=== PATIENT | female | born 1945 | race Caucasian/White ===

== ENCOUNTER 2017-04-13 08:36 | Inpatient (IN) | payer OTHER, MEDICARE ==
[~2017-04-13] VITALS: Ht 162.6 cm; Wt 78.5 kg
[~2017-04-13 08:36] MED LIST: ADVA100A INH; ALPR-138 PO; ALPR0.25 PO; CALC625 PO; CALCTAB80 PO; CO Q10CA PO; CYAN1TAB24 PO; FISH120014 PO; HYDR25TA5 PO; MAXZ25 PO; MONT10TA4 PO; PERC5TAB12 PO; POLY119S PO; SENN1TAB11 PO; SIMV10 PO; SIMV10TA PO; VITA200017 PO; WAL-10TA2 PO
[2017-04-13] MEDS ORDERED: SODIUM CHLORID 0.9% 500 ML IV PRN ×2 (09:15)
[2017-04-13] MEDS ORDERED: INSULIN HUMAN REGULAR 1,000 UNITS/10 ML VIAL SQ PRN ×2 (09:15)
[2017-04-13] MEDS ORDERED: METOPROLOL TARTRATE 25 MG TAB PO PRN ×2 (09:15)
[2017-04-13] MEDS ORDERED: POVIDONE IODINE 5% (ANTISEPSIS KIT) 4 APPLICATIONS EACH NARE PRN ×2 (09:15)
[2017-04-13] MEDS ORDERED: LACTATED RINGER'S 1000 ML IV PRN ×2 (09:15)
[2017-04-13] MEDS ORDERED: HEPARIN SODIUM - SQ 10,000 UNITS/ML VIAL SQ SCH ×2 (09:15)
[2017-04-13] MEDS ORDERED: ceFAZolin 1,000 MG/NS 100 ML IV SCH ×4 (09:15)
[2017-04-13] MEDS ORDERED: CHLORHEXIDINE GLUCONATE 2 % 1 PACK (2 CLOTHS) TOPICAL PRN ×2 (09:15)
[2017-04-13] MEDS ORDERED: ACETAMINOPHEN 1000 MG/100 ML 100 ML IV ONE ×2 (12:04)
[2017-04-13] MEDS ORDERED: ceFAZolin INJ 1,000 MG VIAL IV ONE ×2 (15:49)
[2017-04-13] MEDS ORDERED: METHYLENE BLUE 10 MG/ML VIAL IV ONE ×2 (15:50)
[2017-04-13] MEDS ORDERED: SODIUM CHLORIDE 0.9% FLUSH 10 ML FLUSH IV FLUSH PRN ×2 (16:15)
[2017-04-13] MEDS ORDERED: ALPRAZolam 0.25 MG TAB PO PRN ×2 (16:15)
[2017-04-13] MEDS ORDERED: ONDANSETRON HCL 4 MG/2 ML VIAL IVP PRN ×2 (16:15)
[2017-04-13] MEDS ORDERED: diphenhydrAMINE HCL 25 MG CAP PO PRN ×2 (16:15)
[2017-04-13] MEDS ORDERED: DO NOT ADM ANY ANTICOAGULANT DRUGS PRN ×2 (16:25)
[2017-04-13] MEDS ORDERED: traMADol HCL 50 MG TAB PO PRN ×2 (16:30)
[2017-04-13] MEDS ORDERED: *morphine SULFATE 8 MG/ML PERIprocedure ONLY ONE ×4 (16:30→16:45)
[2017-04-13] MEDS: D5-1/2 NS + KCL 20 MEQ INJ 1,000 ML IV SCH ×2 (16:30)
[2017-04-13] MEDS ORDERED: *MEPERIDINE 25 MG INJ VIAL PERIprocedural Use ONLY ONE ×2 (16:53)
[2017-04-13 18:15] VITALS: BP 131/68; PULSE 49; RESP 16; TEMP 96.5; O2SAT 100
[2017-04-13] MEDS: KETOROLAC TROMETHAMINE 30 MG/ML (IVP) VIAL IVP SCH ×4 (18:21→23:35)
[2017-04-13 20:05] VITALS: BP 121/60; PULSE 62; RESP 14; TEMP 98.8; O2SAT 100
[2017-04-13 20:13] VITALS: PULSE 58
[2017-04-13] MEDS: SODIUM CHLORIDE 0.9% FLUSH 10 ML FLUSH IV FLUSH SCH ×2 (20:50)
[2017-04-13] MEDS ORDERED: PRAVASTATIN SOD 20 MG TAB PO SCH ×2 (21:00)
[2017-04-13] MEDS ORDERED: MONTELUKAST SODIUM 10 MG TAB PO SCH ×2 (21:00)
[2017-04-13 23:36] VITALS: BP 112/57; PULSE 64; RESP 16; TEMP 99.3; O2SAT 97
[2017-04-14 00:09] VITALS: PULSE 64
[2017-04-14] MEDS: D5-1/2 NS + KCL 20 MEQ INJ 1,000 ML IV SCH ×2 (02:11)
[2017-04-14 03:29] VITALS: BP 93/50; PULSE 73; RESP 16; TEMP 98.3; O2SAT 96
[2017-04-14 04:26] VITALS: PULSE 68
[2017-04-14] MEDS: KETOROLAC TROMETHAMINE 30 MG/ML (IVP) VIAL IVP SCH ×4 (06:04→10:34)
[2017-04-14 06:12] LABS: AUTOMATED NEUTROPHIL # 4.3 TH/MM3 (1.8-7.7); BASOPHIL % 0.3 % (0.0-2.0); EOSINOPHIL % 0.3 % (0.0-4.0); HEMATOCRIT 35.5 % (35.0-46.0); HEMOGLOBIN 12.2 GM/DL (11.6-15.3); LYMPH % 14.1 % (9.0-44.0); LYMPHOCYTE # 0.8 TH/MM3 (1.0-4.8); MEAN CELL VOLUME 93.2 FL (80.0-100.0); MEAN CORPUSCULAR HEMOGLOBIN 31.9 PG (27.0-34.0); MEAN CORPUSCULAR HGB CONC 34.3 % (32.0-36.0); MEAN PLATELET VOLUME 8.1 FL (7.0-11.0); MONO % 7.9 % (0.0-8.0); MONOCYTE # 0.4 TH/MM3 (0-0.9); NEUT % 77.4 % (16.0-70.0); PLATELET COUNT 187 TH/MM3 (150-450); RED BLOOD COUNT 3.81 MIL/MM3 (4.00-5.30); RED CELL DISTRIBUTION WIDTH 12.7 % (11.6-17.2); WHITE BLOOD COUNT 5.6 TH/MM3 (4.0-11.0)
[2017-04-14 06:39] LABS: BICARBONATE 26.8 MEQ/L (21.0-32.0); CALCIUM 8.4 MG/DL (8.5-10.1); CREATININE 0.83 MG/DL (0.50-1.00)
[2017-04-14] MEDS ORDERED: ULTR50TA5 PO ×2 (07:54)
[2017-04-14 08:00] VITALS: BP 105/57; PULSE 77; RESP 15; TEMP 99; O2SAT 97
[2017-04-14] MEDS ORDERED: POTASSIUM CHLORIDE 20 MEQ CONTROLLED RELEASE TAB PO ONE ×2 (08:00)
--- NOTE | 2017-04-14 08:59 | MP ---
cc: LILIANA COCHRAN MD,MARCIA DURAND MD DATE OF SURGERY 04/13/2017 PREOPERATIVE DIAGNOSES 1. History of Stage III-A uterine papillary serous carcinoma. 2. Elevated CA-125. POSTOPERATIVE DIAGNOSES 1. History of Stage III-A uterine papillary serous carcinoma. 2. Elevated CA-125. 3. Recurrent uterine papillary serous carcinoma. PROCEDURE Robotic-assisted laparoscopic omentectomy, resection of peritoneal tumor implants. SURGEON Nguyen Coombs MD PHOTOENGRAVING [employer] APPRENTICE [place] [employer] teacher[employer] assistant. ANESTHESIA General endotracheal anesthesia. ESTIMATED BLOOD LOSS 50 cc. URINE OUTPUT 275 cc. IV FLUIDS 1200 cc. HISTORY This is a 71-year-old female who was diagnosed several years ago with Stage III-A uterine papillary serous carcinoma. After surgical staging she underwent Taxol and carboplatin chemotherapy has been followed without evidence of disease. However, in recent months surveillance CA-125 has become elevated and it continued to elevate from approximately 200-400 in recent weeks. PET/CT scan did not show any overt evidence of metastatic disease. However, upon review with radiologist there was a subtle area of PET-avid activity that was suspicious against the left pelvic sidewall. No other abnormality detected. She was counseled regarding options ranging from further imaging to try to acquire image-directed biopsy versus follow-up imaging versus laparoscopy. She is in favor of more definitive evaluation by laparoscopy and presents now for that endeavor. She is seen again in the preop holding area where the findings are reviewed, questions are answered. She understands the objectives are diagnostic to determine the presence or absence of cancer, if there is anything that could benefit from surgical resection that would be our objective as well. Questions were answered. Her and her expressed good understanding and agreed. FINDINGS The peritoneal cavity in the abdomen appears normal. The liver and diaphragm edges are smooth. The large and small bowel and adjacent mesentery appeared normal without any obvious implants. The omentum, however, has some areas that are thickened and appear somewhat altered whereas there is no overt measurable tumor burden, it has the appearance of possibly having small multifocal implants throughout the omental tissue. In the pelvis there are several small implants of small plaque-like tumor implant against the left pelvic sidewall. Where the colon is adherent to the left pelvic sidewall there is a small fluid collection, probably a lymphocyst that is perhaps 2-3 cm in diameter. At the junction where the colon is against the left pelvic sidewall there is approximately a 1-cm slightly raised collection of implants that are suspicious. In the posterior cul-de-sac there are a couple of small implants of approximately 5 mm in size. In the right pelvis where there is some scarring status post prior lymph node dissection, there is a tumor plaque affixing the superior vesical artery to the external iliac vein; it is approximately 1 cm in diameter, slightly raised, perhaps 5 mm. There was also a small amount of fluid within the peritoneal cavity. She is status post prior lymph node dissection. The anatomical changes are consistent with prior lymphadenectomy. There are no persistent, no notable or enlarged lymph nodes. At the conclusion of the case. Each of the aforementioned areas had been sharply dissected in the infracolic omentum as well as a portion of the gastrocolic ligament had been resected such that there was no significant measurable tumor that persisted. PROCEDURE She was taken to the operating room, placed in dorsal lithotomy position. After general endotracheal anesthesia was administered, time-out was undertaken. She was identified by sight recognition and hospital ID bracelet and the proposed procedure was reviewed and confirmed. She was carefully positioned in padded Deangelo stirrups. Her arms were padded and secured to the sides. She was further secured to the operating table with eggcrate padding and tape in across-chest [id number] fashion. All sites were noted to be properly aligned with no malalignments or pressure points. She was prepped and draped in sterile fashion, Suresh catheter placed in the bladder. Change of sterile gloves was undertaken and we confirmed that an orogastric tube was in the stomach on suction. Previous laparoscopic incisions were identified and the surgical marker and using the existing incisions with manual elevation of the abdominal wall and direct laparoscopic visualization a 5-mm cannula was introduced into the left upper quadrant and an atraumatic, intraperitoneal entry was confirmed. Carbon dioxide gas was insufflated. A 12-mm cannula was placed above the umbilicus in the midline and blunt grasper was used to survey the anatomy to see in the abdomen and throughout the peritoneal cavity. She was placed in Trendelenburg position and the small bowel was folded back on its mesenteric root. The findings were as described above. An 8-mm cannulas placed in the right upper quadrant and left lateral quadrant and the original 5 exchanged for an 8-mm cannula. The fluid that was in the cul-de-sac was collected and additional washings were obtained from the abdomen and throughout the peritoneal cavity and combined and sent for peritoneal cytology. The robotic system was brought into the operative field and attached in usual fashion. Monopolar scissors, fenestrated bipolar forceps and ProGrasp manipulators were placed in arms #1, 2 and 3 respectively and I took my place at the surgeon's console. Each of the aforementioned areas suspicious for implant were sharply removed from the peritoneum, first starting on the left pelvis and then the cul-de-sac and then the right pelvis with cautious sharp dissection overlying the wall of the external iliac vein and then removing the remainder of the implant from overlying the right superior vesical artery. These the specimens were placed on a Ray-Cathie sponge in the right pericolic gutter and several specimens were collected laparoscopically and sent for frozen section analysis. Frozen section analysis confirmed the presence of adenocarcinoma. Now attention was directed toward the abdomen, instrument #1 exchanged for a grasper as the distal edge of the infracolic omentum was grasped and pulled toward the pelvis. Scissors were replaced in instrument #1 and dissection was started near the hepatic flexure as nonvascular attachments were taken from the transverse colon with sharp dissection or cautery. Vascular attachments were isolated, cauterized with bipolar cautery and transected. This dissection was continued along the transverse colon were centrally the gastrocolic ligament and omentum were somewhat fused and a portion of the gastrocolic ligament was isolated. The vascular pedicles were cauterized and transected. Further dissection of omentum was carried out near the splenic flexure where similarly nonvascular attachments were taken down with sharp dissection or cautery and the vascular attachments were isolated, rendered hemostatic with bipolar cautery and transected. The central attachment remained to the transverse colon which had somewhat rolled up underneath the stomach and the stomach was more ventral but after clarification of the anatomy and dissecting on the undersurface of the omentum where the transverse colon could be directly visualized, the dissection was continued to allow completion of the resection of the omentum with a portion of the gastrocolic ligament attached and this specimen was placed in the pelvis for later retrieval. All sites were inspected and noted to be hemostatic. The pelvis and abdomen was thoroughly irrigated. To assist in continued hemostasis hemostatic [place] was placed on the regions where the tumor nodules were excised and across, along the transverse colon where the omentum had been resected. It was felt that all reasonable surgical objectives had been completed. The remaining peritoneal implants were removed laparoscopically. The robotic instruments were removed and the robotic system was disengaged. I reentered the bedside under sterile condition. Each of the three Ray-Cathie sponges were removed. Each were removed individually and inspected and noted to be removed in their entirety. A 15-cm EndoCatch bag was introduced which captured the omentum which was brought up to the abdominal wall and using ring forceps it was removed in pieces until the remaining omentum could be delivered, contained within the EndoCatch bag. The 12-mm fascial defect was closed using needle pass apparatus under direct laparoscopic visualization. The sutures were tied securely which rendered the fascia completely airtight and hemostatic. The remaining cannulas were withdrawn after inspection confirmed all sites were hemostatic. There were no remaining foreign objects in the peritoneal cavity. Preliminary counts were correct and the remaining laparoscopic sites were closed with 3-0 Vicryl subcutaneous, 3-0 Vicryl subcuticular and Steri-Strips. Pelvic exam confirmed there were no remaining foreign objects in the vagina. Final counts were correct. She was returned to dorsal supine position and pending reversal of anesthesia when I left the operating room to precede her to the Post-Anesthesia Care Unit. MD LEVAR Schwarz/JESS /5:25 AM /8:40 AM
[2017-04-14] MEDS ORDERED: BUDESONIDE-FORMOTEROL 80/4.5 MCG INHALER INH SCH ×2 (09:00)
[2017-04-14] MEDS ORDERED: HYDROCHLOROTHIAZIDE 25 MG TAB PO SCH ×2 (09:00)
[2017-04-14] MEDS: SODIUM CHLORIDE 0.9% FLUSH 10 ML FLUSH IV FLUSH SCH ×2 (09:14)
[2017-04-14 12:00] VITALS: BP 110/62; PULSE 79; RESP 17; TEMP 98.7; O2SAT 97
--- NOTE | 2017-04-14 14:19 | MD ---
cc: LILIANA COCHRAN MD,HARESH JOHNSMARCIA ADMISSION DATE: 04/13/2017 DISCHARGE DATE: 04/14/2017 PROCEDURE DATE 04/13/2017 PROCEDURE PERFORMED Robotic-assisted laparoscopic omentectomy and resection of multifocal intraperitoneal tumor implants. HOSPITAL COURSE She did well in the early postop period hemodynamically stable, tolerating oral intake. Suresh catheter removed pending voiding. In's and out's [id number]/925. Labs this morning H&H 12.2 and 35.5, white count 5.6. Electrolytes potassium slightly low at 3.3, BUN and creatinine 13 and 0.83. PHYSICAL EXAMINATION Afebrile, pulse 58-73, respirations 14-16, blood pressure 93-121/50-60, O2 saturations greater than equal to 96%. GENERAL: Alert and oriented x3 in no acute distress. LUNGS: Clear. CARDIOVASCULAR: Regular rate and rhythm. ABDOMEN: Soft. Incisions clean and dry. EXTREMITIES: Nontender preexisting lymphedema with support stockings in place. ASSESSMENT Postop day #1 - Findings at the time of surgery, preliminary pathology reviewed. Activities and restrictions discussed. Questions were asked and answered. She expressed a good understanding. PLAN Anticipate discharge home today. She is to contact our office to schedule follow up within two weeks. She is to resume prior medications. Upon review of medication, it seems as though she has tolerated tramadol satisfactorily. She is wanting to avoid some of the narcotic side effects especially GI dysfunction. She is to use medication as sparingly as possible and to try to get by with [id number] nonsteroidal's to the extent possible. Furthermore, she is to call our office should she have any questions or problems between now the time of scheduled followup. MD LEVAR Schwarz/FELICITY /8:03 AM /2:21 PM
== END 2017-04-14 13:54 | disposition home or self-care (01) | DRG 749 ==
LOC: HSDC 08:36 → HSDI 16:38 → HCIN 17:57
PROVIDERS: ADMIT Obstetrics & Gynecology Gynecologic Oncology; ATTEND Obstetrics & Gynecology Gynecologic Oncology
PROC: 0DBW4ZZ Excision of Peritoneum, Percutaneous Endoscopic Approach (ICD-10-PCS; 2017-04-13)
PROC: 8E0W4CZ Robotic Assisted Procedure of Trunk Region, Percutaneous Endoscopic Approach (ICD-10-PCS; 2017-04-13)
PROC: 0DBU4ZZ Excision of Omentum, Percutaneous Endoscopic Approach (ICD-10-PCS; principal; 2017-04-13 12:00)
DX: C55 Malignant neoplasm of uterus, part unspecified (principal); C78.6 Secondary malignant neoplasm of retroperitoneum and peritoneum; Z92.21 Personal history of antineoplastic chemotherapy; Z85.42 Personal history of malignant neoplasm of other parts of uterus
CPT/HCPCS: 80048; 85025; 86850; 86900; 86901; 88305; 88331; 94150; J0131; J0690; J1644; J1885; J2175; J2270; J3480; J7120